=== PATIENT | female | born 1995 | race Caucasian/White ===

== ENCOUNTER 2023-05-04 17:18 | Observation (INO) | payer OTHER ==
[~2023-05-04] VITALS: Ht 157.5 cm; Wt 79.8 kg
[2023-05-04 17:25] VITALS: BP 101/74; PULSE 79; RESP 18; O2SAT 98
[2023-05-04] MEDS ORDERED: TERBUTALINE SULFATE 1 MG/ML 1ML VIAL SC ONE (19:13)
[2023-05-04] MEDS ORDERED: TERBUTALINE SULFATE 1 MG/ML 1ML VIAL SC SCH (19:15)
== END 2023-05-04 21:55 | disposition home or self-care (01) ==
LOC: ER 17:18 → LDRP 17:37
PROVIDERS: ADMIT Obstetrics & Gynecology; ATTEND Obstetrics & Gynecology
DX: O36.8390 Maternal care for abnormalities of the fetal heart rate or rhythm, unspecified trimester, not applicable or unspecified (principal); O99.891 Other specified diseases and conditions complicating pregnancy; R42 Dizziness and giddiness; Z3A.30 30 weeks gestation of pregnancy
CPT/HCPCS: 59025; 76805; 76817; 81002; 94760; 96372; 99284; G0378; J3105